=== PATIENT | male | born 1995 | race Two or more races ===

== ENCOUNTER 2021-09-05 23:03 | Emergency (ER) | payer SELFPAY ==
[~2021-09-05] VITALS: Ht 172.7 cm; Wt 95.0 kg
[2021-09-05 23:10] VITALS: BP 156/89
--- NOTE | 2021-09-05 23:43 | RAD ---
EXAM: 2 Views Right Shoulder DATE: 09/05/2021 11:35 PM INDICATION: Reason: right shoulder pain / Spl. Instructions: / History: COMPARISON: No Prior FINDINGS: There is no evidence for acute fracture or dislocation. AC joint is congruent. Humeral head is not hi gh riding. IMPRESSION: 1. No acute fracture or dislocation. Electronically signed by: Lukasz Yusuf MD (09/05/2021 11:40 PM) BARBY
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
[2021-09-06] MEDS ORDERED: DIPHTH,PERTUSS(ACELL),TET TOX 0.5 ML DISP.SYRIN. VAX IM ONE
== END 2021-09-06 00:31 | disposition home or self-care (01) ==
LOC: ER 23:03
DX: S00.83XA Contusion of other part of head, initial encounter (principal); M25.511 Pain in right shoulder; M54.2 Cervicalgia; F17.200 Nicotine dependence, unspecified, uncomplicated; Y08.89XA Assault by other specified means, initial encounter; Y93.89 Activity, other specified; Y92.89 Other specified places as the place of occurrence of the external cause; Y99.8 Other external cause status
CPT/HCPCS: 70450; 72125; 73030; 90471; 90715; 99284